=== PATIENT | female | born 1950 | race Caucasian/White ===

== ENCOUNTER 2017-02-20 06:29 | Emergency (ER) | payer OTHER ==
[2017-02-20 06:51] VITALS: BP 167/87; TEMP 97.5; BMI 31.2
--- NOTE | 2017-02-20 07:08 | ED.PDOC ---
General ED Provider: Dr. JESSE OROPEZA Chief Complaint: Non-specific Complaint Stated Complaint: 1 week ago, slipped and fell against raised edge of shower bottom. Right chest wall pain for 3 days, resolved, then recurred last night. No additional trauma. No SOB, Mild inc pain with deep breath. Seen at [facility] day of fall and had a neg work up, including X-ray. Time Seen by Physician: 07:04 Mode of Arrival: Walk-In Information Source: Patient Exam Limitations: No limitations Primary Care Provider: LEVON WASHINGTON Nursing and Triage Documentation Reviewed and Agree: Yes Musculoskeletal Complaint Exam - Back Pain Complaint/Exam Mechanism of Injury: Reports: Trauma Onset/Duration: 1 week ago, resolved then recurred last night Symptoms Are: Still present Timing: Intermittent Episodes Lasting: Days Initial Severity: Severe Current Severity: Moderate Location: Reports: Discrete Character: Reports: Sharp (sharp pain with palpation ), Aching, Throbbing Aggravating: Reports: Movements, Lifting Alleviating: Reports: None TAD Risk Factors: Reports: Hypertension AAA Risk Factors: Reports: Hypertension Cauda Equina Risk Factors: Reports: None Epidural Abcess Risk Factors: Reports: None Related Surgical History: Reports: None Focal Tenderness: Yes Paraspinal Muscle Tenderness: No Paraspinal Muscle Spasm: No Scoliosis: No Lordosis: No Kyphosis: No Focal Weakness: Present: None Focal Sensory Loss: Present: None Gait: Present: Normal Differential Diagnoses: Fracture, Other (chest wall intercostal muscle strain) Review of Systems - Review Of Systems Constitutional: Reports: No symptoms Respiratory: Reports: Other (mild inc pain with deep breath) Cardiac: Reports: Chest pain (anterior lower right chest wall pain) GI: Reports: No symptoms : Reports: No symptoms Musculoskeletal: Reports: Muscle pain (anterior lower right chest wall pain) Skin: Reports: No symptoms Neurological: Reports: No symptoms All Other Systems: Reviewed and Negative Past Medical History - Past Medical History Previously Healthy: Yes Endocrine: Reports: None Cardiovascular: Reports: Hypertension Respiratory: Reports: None Hematological: Reports: None Gastrointestinal: Reports: GERD Genitourinary: Reports: CKD Neuro/Psych: Reports: CVA, Depression Musculoskeletal: Reports: None Cancer: Reports: None Last Menstrual Period: 10 YEARS AGO - Surgical History General Surgical History: Reports: Tubal ligation, Cholecystectomy, Tonsillectomy - Family History Family History: Reports: None - Social History Smoking Status: Never smoker Hx Substance Use: No Alcohol Screening: None Lives: Alone - Immunizations Tetanus Shot up to Date: Yes Influenza Vaccine within 12 Months: No Pneumococcal Vaccine up to Date: No Physical Exam - Physical Exam Appearance: Well-appearing, Well-nourished Ill-appearing: None Pain Distress: Moderate Neck: Supple Respiratory: Airway patent, Breath sounds clear, Breath sounds equal, Respirations nonlabored Cardiovascular: RRR, Pulses normal, No rub, No murmur GI/: Soft, Nontender, No masses, Bowel sounds normal, No Organomegaly Musculoskeletal: Normal strength (anterior lower right chest wall severe pain to light palpation, no palpable deformity), ROM intact, No edema, No calf tenderness Skin: Warm, Dry, Normal color Neurological: Sensation intact, Motor intact, Reflexes intact, Cranial nerves intact, Alert, Oriented Psychiatric: Affect appropriate, Mood appropriate Interpretation - Radiology Interpretation Radiology Interpretation By: Radiologist Radiology Results: Negative Exam Interpreted: CXR, Other Xray Comments: right ribs w/PA chest: no rib fracture Critical Care Note - Critical Care Note Total Time (mins): 0 Course - Course Orders, Labs, Meds: Orders Category Date Time Status RIB, W/PA CHEST RIGHT Stat RADS 02/20/17 07:08 Ordered Vital Signs: Temp Pulse Resp BP Pulse Ox 02/20/17 06:30 97.5 F L 93 H 24 167/87 H 97 Departure - Departure Time of Disposition: 08:06 Disposition: HOME SELF-CARE Discharge Problem: Contusion of right chest wall Qualifiers: Encounter type: initial encounter Qualified Code(s): S20.211A - Contusion of right front wall of thorax, initial encounter Instructions: Chest Wall Pain (ED) Condition: Good Pt referred to PMD for follow-up: No (See doctor if no better in one week) Additional Instructions: OTC ibuprofen 800 mg three times a day round the clock for one to two weeks Allergies/Adverse Reactions: Allergies atorvastatin [From Lipitor] Adverse Reaction (Verified 02/20/17 06:53) Iodinated Contrast- Oral and IV Dye [Iodinated Contrast Media - IV Dye] Adverse Reaction (Verified 02/20/17 06:53) Home Medications: Ambulatory Orders Clopidogrel Bisulfate [Plavix] 75 mg PO DAILY #30 12/15/13 Cholecalciferol (Vitamin D3) [Vitamin D3] 5,000 unit PO DAILY 02/02/16 Pantoprazole Sodium [Protonix] 40 mg PO QDAC 02/02/16 Sertraline HCl [Zoloft] 50 mg PO DAILY 02/02/16 Verapamil HCl [Verapamil ER] 240 mg PO DAILY 02/02/16 Clonidine HCl 0.1 mg PO BID PRN 02/20/17 Cyclobenzaprine HCl 10 mg PO TID PRN 02/20/17 Tramadol HCl 50 mg PO Q6H PRN 02/20/17 Disposition Discussed With: Patient
--- NOTE | 2017-02-20 07:45 | DI ---
EXAM: Radiographs, chest and right rib HISTORY: Right anterior lower chest wall pain following a fall on the prior. Initial presentation. COMPARISON: None available. TECHNIQUE: 60 international units. FINDINGS: Heart size is normal. Calcifications present in the thoracic aorta. There is mild consolidation at the left lung base. Lungs otherwise clear without pleural effusion or pneumothorax. No right rib fr acture or other acute osseous abnormality identified. Clips seen in the upper abdomen. IMPRESSION: 1. No right rib fracture. 2. Left basilar atelectasis or pneumonia. Follow-up is recommended.
== END 2017-02-20 08:29 | disposition home or self-care (01) ==
LOC: ED 06:29
DX: S20.211A Contusion of right front wall of thorax, initial encounter (principal); W18.2XXA Fall in (into) shower or empty bathtub, initial encounter; I10 Essential (primary) hypertension
CPT/HCPCS: 99283

== ENCOUNTER 2017-06-10 07:53 | Outpatient (CLI) | END 2017-06-10 07:54 | disposition home or self-care (01) | LOC: RAD 07:53 | PROVIDERS: ATTEND Family Medicine | DX: Z12.31 Encounter for screening mammogram for malignant neoplasm of breast (principal) | CPT/HCPCS: 77067 ==

== ENCOUNTER 2017-10-07 18:51 | Emergency (ER) ==
[2017-10-07 18:56] VITALS: BP 174/94; TEMP 97.7; BMI 30.7
[2017-10-07] MEDS ORDERED: BOOSTRIX IM ONE (19:23)
[2017-10-07] MEDS ORDERED: LIDOCAINE 1%-EPI 1:100,000 20 ML MDV INJ STA (19:23)
--- NOTE | 2017-10-07 19:26 | ED.PDOC ---
General ED Provider: Dr. 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 she did not had Tetanus lately. Time Seen by Physician: 19:23 Mode of Arrival: Walk-In Information Source: Patient Primary Care Provider: LEVON WASHINGTON Nursing and Triage Documentation Reviewed and Agree: Yes Reviewed sepsis parameters & appropriate labs ordered?: Yes System Inflammatory Response Syndrome: Not Applicable Sepsis Protocol: For patient's 13 years and over: Temp is 96.8 and below OR 101 and greater Pulse >90 BPM Resp >20/minute Acutely Altered Mental Status Are patient's symptoms suggestive of a new infection, such as: -Pneumonia -Skin, Soft Tissue -Endocarditis -UTI -Bone, Joint Infection -Implantable Device -Acute Abdominal Infection -Wound Infection -Meningitis -Blood Stream Catheter Infection -Unknown Skin Complaint Exam - Lac/Torso/Upper Ext. Complaint/Exam Location of Injury: Right Mechanism of Injury: Laceration Symptoms Are: Still present Initial Severity: Mild Current Severity: Mild Aggravating: Movement Alleviating: None Associated Signs and Symptoms: Denies: Fever, Chills, Erythema, Numbness, Tingling Differential Diagnoses: Laceration Review of Systems - Review Of Systems Constitutional: Reports: No symptoms Eyes: Reports: No symptoms Ears, Nose, Mouth, Throat: Reports: No symptoms Respiratory: Reports: No symptoms Cardiac: Reports: No symptoms GI: Reports: No symptoms : Reports: No symptoms Musculoskeletal: Reports: No symptoms Skin: Reports: No symptoms Neurological: Reports: No symptoms Endocrine: Reports: No symptoms Hematologic/Lymphatic: Reports: No symptoms All Other Systems: Reviewed and Negative Past Medical History - Past Medical History Previously Healthy: Yes Endocrine: Reports: None Cardiovascular: Reports: Hypertension Respiratory: Reports: None Hematological: Reports: None Gastrointestinal: Reports: GERD Genitourinary: Reports: CKD Neuro/Psych: Reports: CVA, Depression Musculoskeletal: Reports: None Cancer: Reports: None Last Menstrual Period: NONE - Surgical History General Surgical History: Reports: Tubal ligation, Cholecystectomy, Tonsillectomy - Family History Family History: Reports: None - Social History Smoking Status: Never smoker Hx Substance Use: No Alcohol Screening: None - Immunizations Tetanus Shot up to Date: No Influenza Vaccine within 12 Months: No Pneumococcal Vaccine up to Date: No Physical Exam - Physical Exam Appearance: Well-appearing, No pain distress, Well-nourished Eyes: DARON, EOMI, Conjunctiva clear ENT: Ears normal, Nose normal, Oropharynx normal Respiratory: Airway patent, Breath sounds clear, Breath sounds equal, Respirations nonlabored Cardiovascular: RRR, Pulses normal, No rub, No murmur GI/: Soft, Nontender, No masses, Bowel sounds normal, No Organomegaly Musculoskeletal: Normal strength, ROM intact, No edema, No calf tenderness Skin: Warm, Dry, Normal color Neurological: Sensation intact, Motor intact, Reflexes intact, Cranial nerves intact, Alert, Oriented Psychiatric: Affect appropriate, Mood appropriate Procedures - Laceration/Wound Repair No standard instances Wound Description: Linear Wound Length (cm): 2.5 cm Wound Width: 0.5 cm Wound Explored: Clean Wound Irrigated: Yes Wound Prep: Saline, Hibiclens Anesthesia: Lidocaine w/ Epi Wound Repaired With: Sutures Number of Sutures: 5 Layer Closure?: No Critical Care Note - Critical Care Note Total Time (mins): 20 Course - Course Orders, Labs, Meds: Orders Category Date Time Status Diphth,Pertuss(Acell),Tet Vac [Boostrix] MEDS 10/07/17 19:23 Discontinued 0.5 ml IM .ONCE ONE Lidocaine 1%/Epinephrine [Lidocaine 1%-Epi 1:100,000 20 MEDS 10/07/17 19:23 Discontinued ml Mdv] 1 ml INJ ONCE STA Medications Discontinued Medications Generic Name Dose Route Start Last Admin Trade Name Freq PRN Reason Stop Dose Admin Diphtheria/Pertussis/Tetanus Vacc 0.5 ml 10/07/17 19:23 10/07/17 19:32 Boostrix IM 10/07/17 19:24 0.5 ml .ONCE ONE Administration Lidocaine/Epinephrine 1 ml 10/07/17 19:23 10/07/17 19:34 Lidocaine 1%-Epi 1:100,000 20 Ml Mdv INJ 10/07/17 19:24 1 ml ONCE STA Administration Vital Signs: Temp Pulse Resp BP Pulse Ox 10/07/17 18:51 97.7 F 79 15 174/94 H 95 Departure - Departure Time of Disposition: 20:06 Disposition: HOME SELF-CARE Discharge Problem: Laceration of hand Instructions: Laceration (ED) Condition: Stable Pt referred to PMD for follow-up: Yes IPMP verified?: No Additional Instructions: Tylenol prn Can use Triple antibiotic 2-3 times a day f/u with PMD for suture removal in 7 days Prescriptions: Cephalexin [Keflex] 500 mg PO Q12HR #14 capsule Allergies/Adverse Reactions: Allergies atorvastatin [From Lipitor] Adverse Reaction (Verified 02/20/17 06:53) Iodinated Contrast- Oral and IV Dye [Iodinated Contrast Media - IV Dye] Adverse Reaction (Verified 02/20/17 06:53) Home Medications: Ambulatory Orders Clopidogrel Bisulfate [Plavix] 75 mg PO DAILY #30 12/15/13 Cholecalciferol (Vitamin D3) [Vitamin D3] 5,000 unit PO DAILY 02/02/16 Pantoprazole Sodium [Protonix] 40 mg PO QDAC 02/02/16 Sertraline HCl [Zoloft] 50 mg PO DAILY 02/02/16 Verapamil HCl [Verapamil ER] 240 mg PO DAILY 02/02/16 Clonidine HCl 0.1 mg PO BID PRN 02/20/17 Cyclobenzaprine HCl 10 mg PO TID PRN 02/20/17 Tramadol HCl 50 mg PO Q6H PRN 02/20/17 Cephalexin [Keflex] 500 mg PO Q12HR #14 capsule 10/07/17 Disposition Discussed With: Patient, Family
[2017-10-07] MEDS ORDERED: LIDOCAINE HCL 1% SDV IM STA (20:06)
[2017-10-07] MEDS ORDERED: ROCEPHIN IM STA (20:06)
== END 2017-10-07 20:38 | disposition home or self-care (01) ==
LOC: ED 18:51
DX: S61.411A Laceration without foreign body of right hand, initial encounter (principal); W26.8XXA Contact with other sharp object(s), not elsewhere classified, initial encounter
CPT/HCPCS: 90471; 90715; 96372; 99283

== ENCOUNTER 2017-12-23 11:12 | Emergency (ER) ==
[2017-12-23 11:17] VITALS: BP 176/95; TEMP 99.1; BMI 30.6
--- NOTE | 2017-12-23 11:46 | ED.PDOC ---
General ED Provider: Dr. VERNA WASHBURN Chief Complaint: Back Pain Stated Complaint: c/o right flank pain. states she is having pressure around to abd. Admits to experiencing burning discomfort with urination and increased frequency. States has pressure discomrort in mid epigastrium and arround to back Time Seen by Physician: 11:25 Mode of Arrival: Walk-In Information Source: Patient Exam Limitations: No limitations Primary Care Provider: LEVON WASHINGTON Nursing and Triage Documentation Reviewed and Agree: Yes Does patient meet sepsis criteria?: No System Inflammatory Response Syndrome: Not Applicable Sepsis Protocol: For patient's 13 years and over: Temp is 96.8 and below OR 101 and greater Pulse >90 BPM Resp >20/minute Acutely Altered Mental Status Are patient's symptoms suggestive of a new infection, such as: -Pneumonia -Skin, Soft Tissue -Endocarditis -UTI -Bone, Joint Infection -Implantable Device -Acute Abdominal Infection -Wound Infection -Meningitis -Blood Stream Catheter Infection -Unknown Complaint Exam - UTI Female Complaint/Exam Patient Complains of: Reports: Painful urination Symptoms Are: Still present Timing: Intermittent Initial Severity: Moderate Current Severity: Mild Location of Pain: Reports: Flank Related History: Denies: Similar episode Related Surgical History: Reports: None CVA Tenderness: Yes Suprapubic Tenderness: No Differential Diagnoses: Bladder Dysfunction, Pyelonephritis, Ureteral Calculus Review of Systems - Review Of Systems Constitutional: Reports: No symptoms Ears, Nose, Mouth, Throat: Reports: No symptoms Respiratory: Reports: No symptoms Cardiac: Reports: No symptoms GI: Reports: No symptoms : Reports: Burning, Dysuria, Frequency, Urgency Musculoskeletal: Reports: Back pain Skin: Reports: No symptoms Neurological: Reports: No symptoms Endocrine: Reports: No symptoms Hematologic/Lymphatic: Reports: No symptoms All Other Systems: Reviewed and Negative Past Medical History - Past Medical History Previously Healthy: Yes Endocrine: Reports: None Cardiovascular: Reports: Hypertension Respiratory: Reports: None Hematological: Reports: None Gastrointestinal: Reports: GERD Genitourinary: Reports: CKD Neuro/Psych: Reports: CVA, Depression Musculoskeletal: Reports: None Cancer: Reports: None Last Menstrual Period: n/a - Surgical History General Surgical History: Reports: Tubal ligation, Cholecystectomy, Tonsillectomy - Family History Family History: Reports: None - Social History Smoking Status: Never smoker Hx Substance Use: No Alcohol Screening: None - Immunizations Influenza Vaccine within 12 Months: No Pneumococcal Vaccine up to Date: No Physical Exam - Physical Exam Appearance: Well-appearing, No pain distress, Well-nourished Eyes: DRAON, EOMI, Conjunctiva clear ENT: Ears normal, Nose normal, Oropharynx normal Respiratory: Airway patent, Breath sounds clear, Breath sounds equal, Respirations nonlabored Cardiovascular: RRR, Pulses normal, No rub, No murmur GI/: Soft, Nontender, No masses, Bowel sounds normal, No Organomegaly Musculoskeletal: Normal strength, ROM intact, No edema, No calf tenderness Skin: Warm, Dry, Normal color Neurological: Sensation intact, Motor intact, Reflexes intact, Cranial nerves intact, Alert, Oriented Psychiatric: Affect appropriate, Mood appropriate Critical Care Note - Critical Care Note Total Time (mins): 0 Course - Course Hematology/Chemistry: 12/23/17 12:00 12/23/17 12:04 Orders, Labs, Meds: Lab Review 12/23/17 12/23/17 12/23/17 12:00 12:04 12:35 WBC 6.21 RBC 4.18 L Hgb 12.6 Hct 37.1 MCV 88.8 MCH 30.1 MCHC 34.0 RDW Coeff of Mart 12.5 Plt Count 193 Immature Gran % (Auto) 0.2 Neut % (Auto) 67.0 Lymph % (Auto) 25.1 Boyd % (Auto) 6.8 Eos % (Auto) 0.6 Baso % (Auto) 0.3 Immature Gran # (Auto) 0.0 Neut # (Auto) 4.2 Lymph # (Auto) 1.6 Boyd # (Auto) 0.4 Eos # (Auto) 0.0 Baso # (Auto) 0.0 Sodium 137 Potassium 3.6 Chloride 104 Carbon Dioxide 24 Anion Gap 12.6 BUN 20 H Creatinine 0.90 Estimated GFR (MDRD) 63.00 BUN/Creatinine Ratio 22.22 Glucose 98 Calcium 9.7 Total Bilirubin 1.0 AST 22 ALT 25 Alkaline Phosphatase 78 Total Protein 7.2 Albumin 4.0 Globulin 3.2 Albumin/Globulin Ratio 1.25 Urine Color Yellow Urine Clarity Clear Urine pH 6.0 Ur Specific [place] 1.010 Urine Protein Negative Urine Glucose (UA) Negative Urine Ketones Negative Urine Blood Negative Urine Nitrite Negative Urine Bilirubin Negative Urine Urobilinogen 0.2 Ur Leukocyte Esterase 1+ Urine Microscopic WBC 0-2 Ur Squamous Epith Cells 0-2 Urine Bacteria Trace Urine Mucus 1+ Orders Category Date Time Status EKG-(ED ONLY) Stat CARDIO 12/23/17 11:49 Completed CBC W/ AUTO DIFF Stat LAB 12/23/17 12:00 Completed CMP [COMPREHENSIVE METABOLIC PANEL] Stat LAB 12/23/17 12:04 Completed UA [URINALYSIS C & S IF INDICATED] Stat LAB 12/23/17 12:[address] ABDOMEN/PELVIS WO CONTRAST Stat RADS 12/23/17 11:49 Completed Vital Signs: Temp Pulse Resp BP Pulse Ox 12/23/17 11:14 99.1 F 93 H 20 176/95 H 95 Departure - Departure Time of Disposition: 13:10 Disposition: HOME SELF-CARE Discharge Problem: Dysuria-frequency syndrome, Bacteriuria Instructions: Dysuria (ED), Urinary Tract Infection in Women (ED), Urinary Urgency and Frequency (DC) Condition: Good Pt referred to PMD for follow-up: Yes (DR WASHINGTON IN 7-10 Days) IPMP verified?: No Additional Instructions: Force fluids Take Meds as directed Allergies/Adverse Reactions: Allergies atorvastatin [From Lipitor] Adverse Reaction (Verified 12/23/17 11:17) Iodinated Contrast- Oral and IV Dye [Iodinated Contrast Media - IV Dye] Adverse Reaction (Verified 12/23/17 11:17) Home Medications: Ambulatory Orders Clopidogrel Bisulfate [Plavix] 75 mg PO DAILY #30 12/15/13 Cholecalciferol (Vitamin D3) [Vitamin D3] 5,000 unit PO DAILY 02/02/16 Sertraline HCl [Zoloft] 50 mg PO DAILY 02/02/16 Verapamil HCl [Verapamil ER] 240 mg PO DAILY 02/02/16 Clonidine HCl 0.1 mg PO BID PRN 02/20/17 Lisinopril [Zestril] 5 mg PO DAILY 12/23/17 Nitrofurantoin Monohyd/M-Cryst [Macrobid 100 mg Capsule] 100 mg PO BID #14 capsule 12/23/17 Disposition Discussed With: Patient
--- NOTE | 2017-12-23 12:58 | CT ---
Exam: CT of the abdomen and pelvis without contrast History: Abdominal pain and flank pressure Technique: [address] of the abdomen and pelvis without intravascular contrast FINDINGS: The lung bases are clear. Prior cholecystectomy. No significant liver abnormality. The ad renals, pancreas and spleen are unremarkable. The stomach and hiatus are unremarkable.There is a 1.6 cm cyst of the lower left kidney. and proximal collecting system are unremarkable. The appendix is no rmal. Bowel loops demonstrate normal caliber. No inflamatory change seen in the mesentery or retroper itoneum. Bo colonic diverticulosis. Atherosclerotic calcification of the aorta without aneurysm. Colonic diverticulosis of the sigmoid. No pelvic fat inflammation. Normal pelvic genitourinary stru ctures. No acute findings of the skeleton. Impression: 1. No inflammatory process, bowel or urinary obstruction is seen. 2. Bo colonic diverticulosis
== END 2017-12-23 13:33 | disposition home or self-care (01) ==
LOC: ED 11:12
DX: R82.71 Bacteriuria (principal); R30.0 Dysuria; R35.0 Frequency of micturition; N18.9 Chronic kidney disease, unspecified; I10 Essential (primary) hypertension; Z79.899 Other long term (current) drug therapy
CPT/HCPCS: 36415; 80053; 81001; 85025; 93005; 93010; 99283

== ENCOUNTER 2018-01-01 11:39 | Outpatient (CLI) ==
--- NOTE | 2018-01-01 13:11 | DI ---
EXAM: Four views of the thoracolumbar spine. History: Back pain. Findings: Atherosclerotic vascular calcifications. Cholecystectomy clips. No acute fracture or sub luxation. Mild multilevel disc space narrowing with a few tiny anterior osteophytes. Impression: 1. No acute osseous abnormality. 2. Mild degenerative disc disease. 3. Atherosclerotic vascular disease
== END 2018-01-01 11:40 | disposition home or self-care (01) ==
LOC: RAD 11:39
PROVIDERS: ATTEND Physician Assistant
DX: M54.9 Dorsalgia, unspecified (principal)

== ENCOUNTER 2018-01-12 07:07 | Emergency (ER) | payer OTHER ==
[2018-01-12 07:07] VITALS: BMI 30.2
[2018-01-12] MEDS ORDERED: ZOFRAN 4 MG/2 ML IM STA (07:10)
[2018-01-12] MEDS ORDERED: MORPHINE 4 MG/ML SYRINGE IM STA (07:10)
[2018-01-12 07:12] VITALS: BP 146/94; TEMP 97.6
--- NOTE | 2018-01-12 09:44 | MRI ---
EXAM: Lumbar spine MRI without contrast. HISTORY: Back pain and right sciatica. COMPARISON: Thoracolumbar spine radiographs 01/01/[address] lumbar spine 12/20/2015. TECHNIQUE: Multiplanar, multisequence MR images were acquired of the lumbar spine without contrast. FINDINGS: Conus medullaris ends at L1 and has normal signal intensity. Five non-rib bearing lumbar vertebra are present. The lumbar vertebra are normal in height, AP alignment and intrinsic bone shilpa ow signal. Disc dessication is present at L1-2 and there is developing disc desiccation from L2-3 to L4-5. A few small areas of fatty infiltration are present in the pelvis. There is minor lumbar yomi tral spondylosis. Scattered descending and sigmoid colonic diverticula are present without diverticu litis. The liver, the partially visualized liver, spleen and adrenal glands are unremarkable. Small simple bilateral renal cysts are present. L1-2: There is a minimal disc bulge. There is no central canal stenosis or foraminal stenosis. L2-3: The intervertebral disc is normal. There is no central canal stenosis. Foraminal stenosis. L3-4: There is a minor disc bulge that is asymmetric to the left which minimally narrows the inferio r neural foramina bilaterally and mild bilateral ligamentum flavum hypertrophy. There is no central canal stenosis. L4-5: There is a minor disc bulge that minimally narrows the inferior neural foramina bilaterally an d minor bilateral facet arthropathy and mild ligamentum flavum hypertrophy. There is no central cielo l stenosis or significant foraminal stenosis. L5-S1: There is a minimal posterior disc bulge and mild bilateral facet arthropathy and mild ligamen calin flavum hypertroph there is no central canal stenosis or foraminal stenosis. IMPRESSION: 1. Minor lumbar degenerative changes and facet arthropathy. 2. No lumbar disc herniations, pars interarticularis defects or central canal stenosis. 3. Mild colonic diverticulosis without diverticulitis.
--- NOTE | 2018-01-12 09:53 | ED.PDOC ---
General ED Provider: Dr. DONALD NAQVI Chief Complaint: Back Pain Stated Complaint: BACK PAIN LUMBAR Time Seen by Physician: 09:51 (SEEN WITH PT'S NURSE AT ALL TIME NO INJURY PAIN RADIATES DOWN RIGHT POSTERIOR LEG) Mode of Arrival: Ambulance Information Source: Patient Exam Limitations: No limitations Primary Care Provider: YARIEL CHAUHAN Nursing and Triage Documentation Reviewed and Agree: Yes Does patient meet sepsis criteria?: No System Inflammatory Response Syndrome: Not Applicable Sepsis Protocol: For patient's 13 years and over: Temp is 96.8 and below OR 101 and greater Pulse >90 BPM Resp >20/minute Acutely Altered Mental Status Are patient's symptoms suggestive of a new infection, such as: -Pneumonia -Skin, Soft Tissue -Endocarditis -UTI -Bone, Joint Infection -Implantable Device -Acute Abdominal Infection -Wound Infection -Meningitis -Blood Stream Catheter Infection -Unknown Musculoskeletal Complaint Exam - Back Pain Complaint/Exam Mechanism of Injury: Reports: No known trauma Onset/Duration: TODAY Symptoms Are: Still present Timing: Constant Episodes Lasting: Hours Initial Severity: Moderate Current Severity: Moderate Location: Reports: Radiating (RIGHT LEG ) Character: Reports: Spasmodic Aggravating: Reports: Movements, Lifting, Bending, Walking Alleviating: Reports: Rest, Position Associated Signs and Symptoms: Denies: Swelling, Redness, Bruising, Fever, Weakness, Numbness, Tingling, Abdominal pain, Flank pain, Bladder incontinence, Bowel incontinence, Weight loss, Pain with weight bearing Related History: Reports: Similar episode TAD Risk Factors: Reports: None AAA Risk Factors: Reports: None Cauda Equina Risk Factors: Reports: Lower extremity numbness (RIGHT LEG). Denies: Saddle anesthesia, Perineal anesthesia, Bladder dysfuntion, Bowel dysfunction Epidural Abcess Risk Factors: Reports: None Related Surgical History: Reports: None Focal Tenderness: No Paraspinal Muscle Tenderness: Yes Paraspinal Muscle Spasm: Yes Scoliosis: No Lordosis: No SLR Test: Right Positive, Left Negative Hip Motion Testing Pain: Right Positive, Left Negative Focal Weakness: Present: None Focal Sensory Loss: Present: None Gait: Present: Unable Back Picture: 1 - PAIN AND EXTESION OF IT Differential Diagnoses: Strain (SCIATICA), Sprain Review of Systems - Review Of Systems Constitutional: Reports: No symptoms Eyes: Reports: No symptoms Ears, Nose, Mouth, Throat: Reports: No symptoms Respiratory: Reports: No symptoms Cardiac: Reports: No symptoms GI: Reports: No symptoms : Reports: No symptoms Musculoskeletal: Reports: Back pain Skin: Reports: No symptoms Neurological: Reports: No symptoms Endocrine: Reports: No symptoms Hematologic/Lymphatic: Reports: No symptoms All Other Systems: Reviewed and Negative Past Medical History - Past Medical History Previously Healthy: Yes Endocrine: Reports: None Cardiovascular: Reports: Hypertension Respiratory: Reports: None Hematological: Reports: None Gastrointestinal: Reports: GERD Genitourinary: Reports: CKD Neuro/Psych: Reports: CVA, Depression Musculoskeletal: Reports: None Cancer: Reports: None Last Menstrual Period: N/A - Surgical History General Surgical History: Reports: Tubal ligation, Cholecystectomy, Tonsillectomy - Family History Family History: Reports: None - Social History Smoking Status: Never smoker Hx Substance Use: No Alcohol Screening: None - Immunizations Influenza Vaccine within 12 Months: No Pneumococcal Vaccine up to Date: No Physical Exam - Physical Exam Appearance: Well-appearing, No pain distress, Well-nourished Eyes: DARON, EOMI, Conjunctiva clear ENT: Ears normal, Nose normal, Oropharynx normal Respiratory: Airway patent, Breath sounds clear, Breath sounds equal, Respirations nonlabored Cardiovascular: RRR, Pulses normal, No rub, No murmur GI/: Soft, Nontender, No masses, Bowel sounds normal, No Organomegaly Musculoskeletal: Normal strength, ROM intact, No edema, No calf tenderness Skin: Warm, Dry, Normal color Neurological: Sensation intact, Motor intact, Reflexes intact, Cranial nerves intact, Alert, Oriented Psychiatric: Affect appropriate, Mood appropriate Interpretation - Radiology Interpretation Radiology Interpretation By: Radiologist Radiology Results: No acute changes Re-Evaluation - Re-Evaluation Time of Re-Evaluation: 08:00 (SAW PT EARLIER AT CT DEPT DECIDEDKYMBERLY PRESENT AT BEDSIDE . I DECIDED TO OBTAIN AN MRI ) Status: Improved Vital Signs Stable: Yes Pain Level: 3 Appearance: NAD Lungs: Clear Skin: Warm and Dry Neuro: Alert and Oriented X3 CV: RRR - Re-Evaluation Time of Re-Evaluation: 09:56 Status: Improved Vital Signs Stable: Yes Pain Level: 3 Appearance: NAD Skin: Warm and Dry Neuro: Alert and Oriented X3 CV: RRR (NO BOWEL BLADDER ISSUE MRI DISCUSSED WITH PT AND A COPY OF REPORT WAS GIVEN TO THE PT) Critical Care Note - Critical Care Note Total Time (mins): 0 Course - Course Hematology/Chemistry: 01/12/18 09:13 01/12/18 09:13 Orders, Labs, Meds: Lab Review 01/12/18 01/12/18 09:13 09:13 WBC 4.32 L RBC 3.93 L Hgb 12.1 Hct 35.2 L MCV 89.6 MCH 30.8 MCHC 34.4 RDW Coeff of Mart 12.5 Plt Count 164 Immature Gran % (Auto) 0.0 Neut % (Auto) 71.6 Lymph % (Auto) 20.8 [place] % (Auto) 6.7 Eos % (Auto) 0.2 Baso % (Auto) 0.7 Immature Gran # (Auto) 0.0 Neut # (Auto) 3.1 Lymph # (Auto) 0.9 [place] # (Auto) 0.3 L Eos # (Auto) 0.0 Baso # (Auto) 0.0 Sodium 141 Potassium 3.7 Chloride 105 Carbon Dioxide 28 Anion Gap 11.7 BUN 14 Creatinine 0.89 Estimated GFR (MDRD) 64.00 BUN/Creatinine Ratio 15.73 Glucose 121 H Calcium 9.3 Total Bilirubin 0.8 AST 29 ALT 23 Alkaline Phosphatase 70 Total Protein 7.3 Albumin 4.3 Globulin 3.0 Albumin/Globulin Ratio 1.43 Orders Category Date Time Status CBC W/ AUTO DIFF Stat LAB 01/12/18 09:13 Completed COMPREHENSIVE METABOLIC PANEL Stat LAB 01/12/18 09:13 Completed Morphine Sulfate [Morphine 4 mg/ml Syringe] MEDS 01/12/18 07:10 Discontinued 4 mg IM ONCE STA Ondansetron HCl/Pf [Zofran 4 mg/2 ml] MEDS 01/12/18 07:10 Discontinued 4 mg IM ONCE STA MRI LUMBAR SPINE W/O CONTRAST Stat RADS 01/12/18 07:20 Completed Medications Discontinued Medications Generic Name Dose Route Start Last Admin Trade Name Freq PRN Reason Stop Dose Admin Morphine Sulfate 4 mg 01/12/18 07:10 01/12/18 07:28 Morphine 4 Mg/Ml Syringe IM 01/12/18 07:11 4 mg ONCE STA Administration Ondansetron HCl 4 mg 01/12/18 07:10 01/12/18 07:21 Zofran 4 Mg/2 Ml IM 01/12/18 07:11 4 mg ONCE STA Administration Vital Signs: Temp Pulse Resp BP Pulse Ox 01/12/18 07:07 97.6 F 76 20 146/94 H 96 Departure - Departure Time of Disposition: 09:56 Disposition: HOME SELF-CARE Discharge Problem: Backache, Sciatica of right side Low back pain Qualifiers: Chronicity: acute Back pain laterality: midline Sciatica presence: with sciatica Sciatica laterality: sciatica of right side Qualified Code(s): M54.41 - Lumbago with sciatica, right side Instructions: Sciatica (ED), Lumbar Radiculopathy (ED), Lower Back Exercises ( ED), Acute Low Back Pain (ED) Condition: Good Pt referred to PMD for follow-up: Yes IPMP verified?: No Additional Instructions: Please call your Family Physician as soon as possible to schedule a follow-up appointment. Allergies/Adverse Reactions: Allergies atorvastatin [From Lipitor] Adverse Reaction (Verified 01/12/18 07:11) Iodinated Contrast- Oral and IV Dye [Iodinated Contrast Media - IV Dye] Adverse Reaction (Verified 01/12/18 07:11) Home Medications: Ambulatory Orders Clopidogrel Bisulfate [Plavix] 75 mg PO DAILY #30 12/15/13 Cholecalciferol (Vitamin D3) [Vitamin D3] 1,000 unit PO DAILY 02/02/16 Sertraline HCl [Zoloft] 50 mg PO DAILY 02/02/16 Clonidine HCl 0.1 mg PO BID PRN 02/20/17 Lisinopril [Zestril] 5 mg PO DAILY 12/23/17 Amlodipine Besylate [Norvasc] 5 mg PO DAILY 01/06/18 Dicyclomine HCl 10 mg PO TID PRN #15 capsule 01/06/18 Disposition Discussed With: Patient
== END 2018-01-12 10:21 | disposition home or self-care (01) ==
LOC: ED 07:07
DX: M54.41 Lumbago with sciatica, right side (principal); R51 Headache; R52 Pain, unspecified; Z86.73 Personal history of transient ischemic attack (TIA), and cerebral infarction without residual deficits; Z79.899 Other long term (current) drug therapy
CPT/HCPCS: 36415; 80053; 85025; 96372; 99283

== ENCOUNTER 2018-01-15 15:47 | Outpatient (CLI) | payer OTHER | END 2018-01-15 15:48 | disposition home or self-care (01) | LOC: LAB 15:47 | PROVIDERS: ATTEND Physician Assistant | DX: R19.7 Diarrhea, unspecified (principal) | CPT/HCPCS: 87015; 87045; 87493; 87899; 89055 ==

== ENCOUNTER 2018-02-20 12:13 | Emergency (ER) | payer OTHER ==
[2018-02-20 12:25] VITALS: BP 164/86; TEMP 99.7; BMI 28.6
--- NOTE | 2018-02-20 14:04 | ED.PDOC ---
General ED Provider: Dr. DONALD NAQVI Chief Complaint: Non-specific Complaint Stated Complaint: pt stated that she has generalized pain, anxiety Time Seen by Physician: 12:20 (seen with indy at all times ) Mode of Arrival: Wheelchair Information Source: Patient Exam Limitations: No limitations Primary Care Provider: YARIEL CHAUHAN Nursing and Triage Documentation Reviewed and Agree: Yes Does patient meet sepsis criteria?: No System Inflammatory Response Syndrome: Not Applicable Sepsis Protocol: For patient's 13 years and over: Temp is 96.8 and below OR 101 and greater Pulse >90 BPM Resp >20/minute Acutely Altered Mental Status Are patient's symptoms suggestive of a new infection, such as: -Pneumonia -Skin, Soft Tissue -Endocarditis -UTI -Bone, Joint Infection -Implantable Device -Acute Abdominal Infection -Wound Infection -Meningitis -Blood Stream Catheter Infection -Unknown Musculoskeletal Complaint Exam - Lower Extremity Complaint/Exam Location of Pain: Reports: Right, Left, Ankle, Leg, Knee, Thigh, Hip Mechanism of Injury: Reports: No known trauma Onset/Duration: today Symptoms Are: Still present Onset of Pain: Reports: Minutes Initial Severity: Moderate Current Severity: Mild Location: Reports: Discrete Character: Reports: Aching Alleviating: Reports: None Aggravating: Reports: Movement Able to Bear Weight: Yes Associated Signs and Symptoms: Denies: Swelling, Redness, Bruising, Fever, Weakness, Numbness, Tingling DVT Risk Factors: Reports: None Septic Arthritis Risk Factors: Reports: None Related Surgical History: Reports: None Lower Extremity Findings: Absent: Swelling, Ecchymosis, Abnormal contour, Rotation, Ligamentous instability, Laceration, Erythema, Warmth, Blisters Compartment Syndrome Risk Factors: Absent: Pain, Paralysis, Pallor, Pulselessness, Paresthesias Sharon's Sign Present: No Differential Diagnoses: Arthritis, Strain, Sprain, Tenosynovitis Review of Systems - Review Of Systems Constitutional: Reports: No symptoms Eyes: Reports: No symptoms Ears, Nose, Mouth, Throat: Reports: No symptoms Respiratory: Reports: No symptoms Cardiac: Reports: No symptoms GI: Reports: No symptoms : Reports: Other (lower leg pain) Musculoskeletal: Reports: No symptoms Skin: Reports: No symptoms Neurological: Reports: No symptoms Endocrine: Reports: No symptoms Hematologic/Lymphatic: Reports: No symptoms All Other Systems: Reviewed and Negative Past Medical History - Past Medical History Previously Healthy: Yes Endocrine: Reports: None Cardiovascular: Reports: Hypertension Respiratory: Reports: None Hematological: Reports: None Gastrointestinal: Reports: GERD Genitourinary: Reports: CKD Neuro/Psych: Reports: CVA, Depression Musculoskeletal: Reports: None Cancer: Reports: None Last Menstrual Period: unknown - Surgical History General Surgical History: Reports: Tubal ligation, Cholecystectomy, Tonsillectomy - Family History Family History: Reports: None - Social History Smoking Status: Never smoker Hx Substance Use: No Alcohol Screening: None - Immunizations Influenza Vaccine within 12 Months: No Pneumococcal Vaccine up to Date: No Physical Exam - Physical Exam Appearance: Well-appearing, No pain distress, Well-nourished Eyes: DARON, EOMI, Conjunctiva clear ENT: Ears normal, Nose normal, Oropharynx normal Respiratory: Airway patent, Breath sounds clear, Breath sounds equal, Respirations nonlabored Cardiovascular: RRR, Pulses normal, No rub, No murmur GI/: Soft, Nontender, No masses, Bowel sounds normal, No Organomegaly Musculoskeletal: Normal strength, ROM intact, No edema, No calf tenderness Skin: Warm, Dry, Normal color Neurological: Sensation intact, Motor intact, Reflexes intact, Cranial nerves intact, Alert, Oriented Psychiatric: Affect appropriate, Mood appropriate Re-Evaluation - Re-Evaluation Time of Re-Evaluation: 13:00 Status: Improved Vital Signs Stable: Yes Pain Level: 0 Appearance: NAD Lungs: Clear Skin: Warm and Dry Neuro: Alert and Oriented X3 CV: RRR - Re-Evaluation Time of Re-Evaluation: 14:05 Status: Improved Vital Signs Stable: Yes Pain Level: 0 Appearance: NAD Skin: Warm and Dry Neuro: Alert and Oriented X3 CV: RRR Critical Care Note - Critical Care Note Total Time (mins): 0 Course - Course Hematology/Chemistry: 02/20/18 12:50 02/20/18 12:50 Orders, Labs, Meds: Lab Review 02/20/18 02/20/18 02/20/18 12:46 12:50 12:50 WBC 6.12 RBC 4.06 L Hgb 12.5 Hct 35.1 L MCV 86.5 MCH 30.8 MCHC 35.6 H RDW Coeff of Mart 12.1 Plt Count 190 Immature Gran % (Auto) 0.2 Neut % (Auto) 67.2 Lymph % (Auto) 24.0 [place] % (Auto) 7.2 Eos % (Auto) 0.7 Baso % (Auto) 0.7 Immature Gran # (Auto) 0.0 Neut # (Auto) 4.1 Lymph # (Auto) 1.5 [place] # (Auto) 0.4 Eos # (Auto) 0.0 Baso # (Auto) 0.0 Sodium 136.9 L Potassium 3.18 L Chloride 102.8 Carbon Dioxide 25.1 Anion Gap 12.18 BUN 15.1 Creatinine 0.95 Estimated GFR (MDRD) 59.00 BUN/Creatinine Ratio 15.89 Glucose 112.8 H Calcium 9.39 Total Bilirubin 0.79 AST 26.3 ALT 19.9 Alkaline Phosphatase 75.1 Total Creatine Kinase 27.8 L Troponin I < 0.012 Total Protein 7.15 Albumin 4.54 Globulin 2.61 Albumin/Globulin Ratio 1.73 Urine Color Yellow Urine Clarity Slightly Urine pH 7.0 Ur Specific [place] 1.010 Urine Protein Negative Urine Glucose (UA) Negative Urine Ketones Negative Urine Blood Negative Urine Nitrite Positive Urine Bilirubin Negative Urine Urobilinogen 0.2 Ur Leukocyte Esterase 3+ Urine Microscopic WBC 2-5 Ur Squamous Epith Cells Not present Ur Transition Epith Cell 2-5 Ur Renal Epithelial Cell 2-5 Urine Bacteria 3+ Orders Category Date Time Status EKG-(ED ONLY) Stat CARDIO 02/20/18 12:38 Completed CBC W/ AUTO DIFF Stat LAB 02/20/18 12:50 Completed COMPREHENSIVE METABOLIC PANEL Stat LAB 02/20/18 12:50 Completed CREATINE KINASE Stat LAB 02/20/18 12:50 Completed TROPONIN I Stat LAB 02/20/18 12:50 Completed URINALYSIS C & S IF INDICATED Stat LAB 02/20/18 12:46 Completed URINE CULTURE Stat LAB 02/20/18 12:46 Received Vital Signs: Temp Pulse Resp BP Pulse Ox 02/20/18 12:14 99.7 F H 105 H 20 164/86 H 96 Departure - Departure Time of Disposition: 14:05 Disposition: HOME SELF-CARE Discharge Problem: Leg pain, bilateral UTI (urinary tract infection) Qualifiers: Urinary tract infection type: site unspecified Hematuria presence: without hematuria Qualified Code(s): N39.0 - Urinary tract infection, site not specified Instructions: Urinary Tract Infection in Women (ED) Condition: Good Pt referred to PMD for follow-up: Yes IPMP verified?: No Additional Instructions: Please call your Family Physician as soon as possible to schedule a follow-up appointment. a shot has been given for the your urinary tract infection recheck urine test by your doctor on friday Allergies/Adverse Reactions: Allergies atorvastatin [From Lipitor] Adverse Reaction (Verified 02/20/18 12:24) Iodinated Contrast- Oral and IV Dye [Iodinated Contrast Media - IV Dye] Adverse Reaction (Verified 02/20/18 12:24) Home Medications: Ambulatory Orders Clopidogrel Bisulfate [Plavix] 75 mg PO DAILY #30 12/15/13 Cholecalciferol (Vitamin D3) [Vitamin D3] 1,000 unit PO DAILY 02/02/16 Sertraline HCl [Zoloft] 100 mg PO DAILY 02/02/16 Clonidine HCl 0.1 mg PO BID PRN 02/20/17 Lisinopril [Zestril] 5 mg PO DAILY 12/23/17 Amlodipine Besylate [Norvasc] 5 mg PO DAILY 01/06/18 Dicyclomine HCl 10 mg PO TID PRN #15 capsule 01/06/18 Pantoprazole Sodium [Protonix] 40 mg PO DAILY 02/20/18 Disposition Discussed With: Patient, Family
[2018-02-20] MEDS ORDERED: LIDOCAINE HCL 1% SDV IM STA (14:07)
[2018-02-20] MEDS ORDERED: ROCEPHIN IM STA (14:07)
== END 2018-02-20 14:58 | disposition home or self-care (01) ==
LOC: ED 12:13
DX: M79.605 Pain in left leg (principal); M79.604 Pain in right leg; N39.0 Urinary tract infection, site not specified; I10 Essential (primary) hypertension; N18.9 Chronic kidney disease, unspecified; Z79.899 Other long term (current) drug therapy; Z86.73 Personal history of transient ischemic attack (TIA), and cerebral infarction without residual deficits
CPT/HCPCS: 36415; 80053; 81001; 82550; 84484; 85025; 87086; 87186; 93005; 93010; 96372; 99283

== ENCOUNTER 2018-05-15 06:57 | Outpatient (CLI) | payer OTHER ==
--- NOTE | 2018-05-15 08:29 | US ---
EXAM: Right upper quadrant abdominal ultrasound. History: Elevated liver enzymes. Comparison: CT abdomen pelvis 12/23/2017 Technique: Multiple sonographic images through the abdomen were obtained. Color duplex Doppler was used to interrogate vascular flow. Findings: The liver is not enlarged. No focal liver lesions. Pancreas is unremarkable. No abdominal ascites. There is antegrade flow within the main portal vein. Limited visualization of the right kidney dem onstrates no evidence for hydronephrosis. Status post cholecystectomy. Common bile duct measures up to 0.8 cm in caliber. Impression: 1. Sonographically normal liver. 2. Status post cholecystectomy
== END 2018-05-15 06:58 | disposition home or self-care (01) ==
LOC: RAD 06:57
PROVIDERS: ATTEND Physician Assistant
DX: R74.8 Abnormal levels of other serum enzymes (principal)

== ENCOUNTER 2018-07-24 08:31 | Outpatient (CLI) | payer OTHER ==
--- NOTE | 2018-07-24 10:08 | DEXA ---
Exam: Bone densitometry DEXA scan performed on the Carmolex, device. Comparison: None available. Reason for exam: Post menopausal evaluation. FINDINGS: Imaging is obtained of the lumbar spine and deemed to be adequate for interpretation. Total BMD of the lumbar spine measures 1.215 grams per centimeter squared T-score 0.3. Z-score 1.5 WHO classification suggest normal bone mineral density Imaging is obtained of the left hip and deemed to be adequate for interpretation. BMD of the left femoral neck measures 0.833 grams per centimeter squared T-score -1.5. Z-score -0.3 WHO classification suggests osteopenia. Imaging is obtained of the right hip and deemed to be adequate for interpretation. Total BMD of the right femoral neck measures 0.824 grams per centimeter squared T-score minus of 1.5. Z-score -0.3 WHO classification suggest osteopenia. The total T-score left hip -1.0 The total T-score right hip, -0.8 Impression: 1. WHO classification suggest osteopenia in both femoral necks with normal bone mineral density in t he lumbar spine. 2. WHO fracture risk assessment tool (FRAX) 10-year fracture risk percentage Major osteoporotic fracture risk over 10 years. 9.0%. Hip fracture risk over 10 years. 1.0%.
--- NOTE | 2018-07-24 10:18 | MAMMO ---
EXAM: Bilateral digital screening mammogram (2-D and 3-D) History: Screening Comparison: Bilateral mammogram 06/10/2017 Findings: MLO and CC views of bilateral breasts demonstrate heterogeneously dense breast parenchyma which can obscure small lesions. There are no dominant masses, no suspicious microcalcifications and no architectural distortions Impression: Stable negative mammogram. Recommend followup routine screening mammography in 1 year. BIRADS 1, negative
== END 2018-07-24 08:32 | disposition home or self-care (01) ==
LOC: RAD 08:31
PROVIDERS: ATTEND Physician Assistant
DX: Z12.31 Encounter for screening mammogram for malignant neoplasm of breast (principal); Z78.0 Asymptomatic menopausal state

== ENCOUNTER 2018-08-18 08:31 | Outpatient (POV) | payer OTHER | END 2018-08-18 17:00 | LOC: OUTPT 08:31 | PROVIDERS: ATTEND Otolaryngology | DX: H91.90 Unspecified hearing loss, unspecified ear (principal) | CPT/HCPCS: 92557; 92567 ==

== ENCOUNTER 2018-08-25 07:26 | Outpatient (CLI) ==
--- NOTE | 2018-08-25 10:23 | US ---
EXAM: RENAL ULTRASOUND, BILATERAL HISTORY: Acute renal failure FINDINGS: Ultrasound renal, bilateral. [place]-scale ultrasound and color Doppler imaging was performe d. The right kidney measures 8.4 x 4.7 x 4.3 centimeters. The left kidney measures 10.0 x 5.0 x 4.3 centimeters. Renal cortical echogenicity is increased and cortical volume decreased bilaterally especially relativ e to age. There is no evidence of hydronephrosis. Small 13 mm cyst of the lateral right kidney and a 2.6 cm cyst of the inferior left kidney. Urinary bladder was decompressed although grossly unremar kable. IMPRESSION: 1. Appearance of the kidneys could indicate change from chronic medical renal disease, correlate cli nically. No evidence of renal obstruction. Small renal cysts. Similar appearance seen on prior chiki dy of 01/19/2016. 2. Grossly unremarkable urinary bladder.
== END 2018-08-25 07:27 | disposition home or self-care (01) ==
LOC: RAD 07:26
PROVIDERS: ATTEND Internal Medicine Nephrology
DX: N17.9 Acute kidney failure, unspecified (principal); I10 Essential (primary) hypertension; Z79.899 Other long term (current) drug therapy
CPT/HCPCS: 36415; 80053; 82043; 83516; 83520; 83735; 84100; 84165; 84550; 85014; 85018; 85027; 85651; 86038; 86140; 86160; 86256; 86320